=== PATIENT | male | born 1995 | race Two or more races ===

== ENCOUNTER 2020-12-08 12:48 | Inpatient (IN) | payer BC, OTHER ==
[2020-12-08] MEDS ORDERED: Morphine 4 MG/ML Syringe IVPUSH ONE (13:39)
[2020-12-08] MEDS ORDERED: Sodium Chloride 0.9% 1,000 ML IV ONE ×2 (13:39→15:01)
[2020-12-08] MEDS ORDERED: Ondansetron 4 MG/2 ML SDV IVPUSH ONE (13:39)
--- NOTE | 2020-12-08 13:42 | EDM.PDOC ---
ED HPI GENERAL MEDICAL PROBLEM - General Chief Complaint: Genitourinary Problem Stated Complaint: PAIN IN LEFT SCROTOM Time Seen by Provider: 12/08/20 13:03 Source of Information: Reports: Patient History Limitations: Reports: No Limitations - History of Present Illness INITIAL COMMENTS - FREE TEXT/NARRATIVE: HISTORY AND PHYSICAL: History of present illness: Patient is a 25-year-old male who presents to the emergency room with complaints of left testicular pain. Father who is at bedside states that the patient has been having abdominal pain, change in bowel movements, weight loss and "deteriorating" over the past 2 months. He was seen at [facility] in [place] and had been diagnosed with ulcerative colitis. He had full work-up including CT scan, colonoscopy and lab work. Patient reports he took Mesalamine rectally x 1 month and now takes it orally for treatment course. Patient reports that last evening he was laying in bed and he turned onto his side and had a sharp pain into his left testicle. Patient denies any fever, chills, headache, change in vision, syncope or near syncope. Denies any chest pain, back pain, shortness of breath or cough. Denies any abdominal pain, nausea, vomiting, diarrhea, constipation or dysuria. Has not noted any blood in urine or stool. States every time he voids, he usually has small amount of mucousy stools. He has had bloody stools in the past, but "much better now...just have hemorrhoids that are bleeding alittle". Patient has been eating and drinking appropriately. Review of systems: As per history of present illness and below otherwise all systems reviewed and negative. Past medical history: As per history of present illness and as reviewed below otherwise noncontributory. Surgical history: As per history of present illness and as reviewed below otherwise noncontributory. Social history: See social history for further information Family history: As per history of present illness and as reviewed below otherwise noncontributory. Physical exam: General: Well developed and well nourished 25-year-old male. Alert and orientated x 3. Nontoxic in appearance and in no acute distress. Vital signs are stable and have been reviewed by me. Nursing notes were reviewed. HEENT: Atraumatic, normocephalic, pupils equal and reactive bilaterally, negative for conjunctival pallor or scleral icterus, mucous membranes moist, trachea midline. No drooling or trismus noted. No meningeal signs. No hot potato voice noted. Lungs: Clear to auscultation bilaterally. No wheezes, rales, or rhonchi. Chest nontender. Normal work of breathing, no accessory muscles used. Heart: S1S2, regular rate and rhythm without overt murmur, gallops, or rubs. No JVD. No peripheral edema Abdomen: Soft, nondistended, nontender. Normoactive bowel sounds. Negative for masses or costovertebral tenderness. Pelvis: Stable nontender. Genitourinary: This was done with consent and a sales support manager at bedside. Bilateral testes are descended. Left testy is tender to touch and mildly larger than right. No hernia appreciated. +cremasteric reflex . Rectal: This was done with consent and a sales support manager at the bedside. Patient does have active external hemorrhoids noted and pain with finger insertion. There is yellow/pink stool noted which is Hemoccult positive. Skin: Intact, warm, dry. No lesions or rashes noted. Hematologic: No petechiae or purpra. Mucosa appropriate color and normal nail bed color and refill. Extremities: Atraumatic, moves all extremities per self without difficulty or deficits, negative for cords or calf pain. Neurovascular unremarkable. Neuro: Awake, alert, oriented. Cranial nerves II through XII unremarkable. Cerebellum unremarkable. Motor and sensory unremarkable throughout. Exam nonfocal. Psychiatric: Mood and affect are appropriate. Normal thought process. Answering questions appropriately. Please note that the patient was seen and evaluated during the 2019 SARS-CoV-2 novel coronavirus pandemic period. Community viral transmission is ongoing at time of this encounter and the emergency department is operating under pandemic response procedures. Medical Decision Making: Patient is a 25-year-old male who presents to the emergency room with complaints of left testicular pain since this morning. Dad is concerned as he feels the patient has been deteriorating since being diagnosed with ulcerative colitis 2 months ago. Patient's vital signs show he has an elevated heart rate, he does appear pale. He is agreeable to lab work including a testicular ultrasound to rule out torsion. Physical exam reveals tenderness of the left testy. He does have active external hemorrhoids noted and pain with finger insertion. There is yellow/pink stool noted which is Hemoccult positive. My suspicion for active GI bleeding is low. His bottom does appear irritated. He states he did have quite a bit of blood in his stools last month but it is progressively getting better. He believes that the blood he sees now is just from the hemorrhoids. Patient does have a low hemoglobin. Patient states that his hemoglobin is chronically low and he takes iron supplements for this. When he was admitted to the hospital a month ago his hemoglobin had gotten down to 7.2 and had came up to 8 with IV fluids. He states he is never had to receive blood products for his low hemoglobin. When his blood was checked a few weeks ago his hemoglobin was 9.2. Patient's testicular ultrasound is negative. I have talked with the patient about today's findings, in addition to providing specific details for plan of care. We did discuss how we would like to proceed. Patient and father state when he was admitted last time for the low hemoglobin that he felt much better after receiving IV fluids and would like to trial this. Dr. Rivera was consulted and is agreeable to keeping the patient for further care and management. Patient will be admitted with telemetry. Diagnostics: CBC, CMP, crossmatch, UA, gonorrhea/chlamydia, Hemoccult, testicular ultrasound Therapeutics: IV fluid, Zofran, morphine Impression: Ulcerative colitis Anemia Definitive disposition and diagnosis as appropriate pending reevaluation and review of above. Left Scrotum Pain Score (Numeric/FACES): 2 - Related Data Allergies Allergy/AdvReac Type Severity Reaction Status Date / Time No Known Allergies Allergy Verified 12/08/20 13:45 Home Meds: Home Meds Ferrous Sulfate [Ferosul] 1 tab PO 07/26/20 [History] Past Medical History - Past Health History Medical/Surgical History: Denies Medical/Surgical History Gastrointestinal History: Reports: GI Bleed Other Gastrointestinal History: history of GI bleeds for several years Psychiatric History: Reports: Anxiety, Depression Other Psychiatric History: suicide in the past but nothing present - Infectious Disease History Infectious Disease History: Reports: None Social & Family History - Family History Family Medical History: No Pertinent Family History - Caffeine Use Caffeine Use: Reports: None ED ROS GENERAL - Review of Systems Review Of Systems: Comprehensive ROS is negative, except as noted in HPI. ED EXAM, RENAL/ - Physical Exam Exam: See Below (See dictation) Course - Vital Signs Last Recorded V/S: Last Vital Signs Temp 99.7 F 12/08/20 13:45 Pulse 101 H 12/08/20 16:06 Resp 18 12/08/20 16:06 BP 115/63 12/08/20 16:06 Pulse Ox 97 12/08/20 16:06 Orthostatic Blood Pressure [ 109/68 Standing] Orthostatic Blood Pressure [ 118/77 Sitting] Orthostatic Blood Pressure [ 122/75 Supine] - Orders/Labs/Meds Orders: Active Orders 24 hr Category Date Time Status Admission Status [Patient Status] [ADT] Stat ADT 12/08/20 15:02 Active Antiembolic Devices [RC] PER UNIT ROUTINE Care 12/08/20 15:15 Active Hemoccult [Fecal Occult Blood Collection] [RC] Care 12/08/20 14:09 Active ASDIRECTED Orthostatic Vital Signs [RC] ASDIRECTED Care 12/08/20 14:04 Active Oxygen Therapy [RC] PRN Care 12/08/20 15:14 Active Up ad Desiree [RC] ASDIRECTED Care 12/08/20 15:14 Active VTE/DVT Education [RC] PER UNIT ROUTINE Care 12/08/20 15:14 Active Vital Signs [RC] Q4H Care 12/08/20 15:14 Active Clear Liquid Diet [DIET] Diet 12/08/20 Breakfast Active Abdomen Pelvis w Cont [CT] Stat Exams 12/08/20 15:13 Taken Testicular US [Scrotum and Contents] [US] Stat Exams 12/08/20 13:53 Taken CBC WITH AUTO DIFF [HEME] AM Lab 12/09/20 05:11 Ordered CBC WITH AUTO DIFF [HEME] Stat Lab 12/08/20 21:00 Ordered CHLAMYDIA AND GONORRHEA BY TMA Stat Lab 12/08/20 14:37 Received COMPREHENSIVE METABOLIC PN,CMP [CHEM] AM Lab 12/09/20 05:11 Ordered CORONAVIRUS COVID-19 JADYN [MOLEC] Stat Lab 12/08/20 15:05 Received MAGNESIUM [CHEM] AM Lab 12/09/20 05:11 Ordered PHOSPHORUS [CHEM] AM Lab 12/09/20 05:11 Ordered Morphine Med 12/08/20 15:14 Active 2 mg IVPUSH Q3H PRN Ondansetron [Zofran] Med 12/08/20 15:14 Active 4 mg IVPUSH Q4H PRN Sodium Chloride 0.9% [Normal Saline] 1,000 ml Med 12/08/20 15:01 Active IV STAT methylPREDNISolone Sod Succ [Solu-MEDROL] Med 12/08/20 15:30 Active 40 mg IVPUSH DAILY Sequential Compression Device [OM.PC] Per Unit Routine Oth 12/08/20 15:14 Ordered Resuscitation Status Routine Resus Stat 12/08/20 15:14 Ordered Medication Orders Sodium Chloride (Normal Saline) 1,000 mls @ 125 mls/hr IV STAT ONE Stop: 12/08/20 23:00 Last Admin: 12/08/20 15:17 Dose: 125 mls/hr Documented by: ANNA Methylprednisolone Sodium Succinate (Methylprednisolone Sodium Succinate 40 Mg/1 Ml Sdv) 40 mg IVPUSH DAILY MCKAY Last Admin: 12/08/20 15:59 Dose: 40 mg Documented by: ANNA Morphine Sulfate (Morphine 10 Mg/Ml Syringe) 2 mg IVPUSH Q3H PRN PRN Reason: Pain (severe 7-10) Stop: 12/09/20 15:15 Ondansetron HCl (Ondansetron 4 Mg/2 Ml Sdv) 4 mg IVPUSH Q4H PRN PRN Reason: Nausea Labs: Laboratory Tests 12/08/20 12/08/20 12/08/20 Range/Units 13:33 13:42 13:42 WBC 8.20 (4.0-11.0) K/uL RBC 4.27 L (4.50-5.90) M/uL Hgb 7.9 L (13.0-17.0) g/dL Hct 25.6 L (38.0-50.0) % MCV 60.0 L (80.0-98.0) fL MCH 18.5 L (27.0-32.0) pg MCHC 30.9 L (31.0-37.0) g/dL RDW Std Deviation 36.9 (28.0-62.0) fl RDW Coeff of Malcolm 17 H (11.0-15.0) % Plt Count 786 H (150-400) K/uL MPV 8.20 (7.40-12.00) fL Add Manual Diff YES Neutrophils % (Manual) 61 (48.0-80.0) % Band Neutrophils % 3 % Lymphocytes % (Manual) 23 (16.0-40.0) % Monocytes % (Manual) 10 (0.0-15.0) % Eosinophils % (Manual) 1 (0.0-7.0) % Basophils % (Manual) 1 (0.0-1.5) % Metamyelocytes % 1 % Nucleated RBC % 0.0 /100WBC Absolute Seg Neuts 5.0 (1.4-5.7) Band Neutrophils # 0.2 Lymphocytes # (Manual) 1.9 (0.6-2.4) Monocytes # (Manual) 0.8 (0.0-0.8) Eosinophils # (Manual) 0.1 (0.0-0.7) Basophils # (Manual) 0.1 (0.0-0.1) Absolute Metamyelocyte 0.1 Nucleated RBCs # 0 K/uL Polychromasia 1+ SLIGHT Hypochromasia MODERATE Microcytosis 2+ MODERATE Sodium 131 L (136-148) mmol/L Potassium 3.7 (3.5-5.1) mmol/L Chloride 94 L (98-107) mmol/L Carbon Dioxide 27.9 (21.0-32.0) mmol/L BUN 5 L (7.0-18.0) mg/dL Creatinine 1.2 (0.8-1.3) mg/dL Est Cr Clr Drug Dosing 85.99 mL/min Estimated GFR (MDRD) > 60.0 ml/min Glucose 152 H (74-106) mg/dL Lactic Acid (0.4-2.0) mmol/L Calcium 8.4 L (8.5-10.1) mg/dL Iron (50-175) ug/dL TIBC (250-450) ug/dL % Saturation (20-55) % Transferrin Ferritin (26-388) ng/mL Total Bilirubin 0.2 (0.2-1.0) mg/dL AST 19 (15-37) IU/L ALT 20 (14-63) IU/L Alkaline Phosphatase 101 (46-116) U/L Total Protein 7.1 (6.4-8.2) g/dL Albumin 2.0 L (3.4-5.0) g/dL Globulin 5.1 H (2.6-4.0) g/dL Albumin/Globulin Ratio 0.4 L (0.9-1.6) Urine Color YELLOW Urine Appearance CLEAR Urine pH 7.0 (5.0-8.0) Ur Specific [place] <= 1.005 (1.001-1.035) Urine Protein NEGATIVE (NEGATIVE) mg/dL Urine Glucose (UA) NEGATIVE (NEGATIVE) mg/dL Urine Ketones NEGATIVE (NEGATIVE) mg/dL Urine Occult Blood NEGATIVE (NEGATIVE) Urine Nitrite NEGATIVE (NEGATIVE) Urine Bilirubin NEGATIVE (NEGATIVE) Urine Urobilinogen 0.2 (<2.0) EU/dL Ur Leukocyte Esterase NEGATIVE (NEGATIVE) Blood Type Antibody Screen 12/08/20 12/08/20 12/08/20 Range/Units 13:42 13:42 14:43 WBC (4.0-11.0) K/uL RBC (4.50-5.90) M/uL Hgb (13.0-17.0) g/dL Hct (38.0-50.0) % MCV (80.0-98.0) fL MCH (27.0-32.0) pg MCHC (31.0-37.0) g/dL RDW Std Deviation (28.0-62.0) fl RDW Coeff of Malcolm (11.0-15.0) % Plt Count (150-400) K/uL MPV (7.40-12.00) fL Add Manual Diff Neutrophils % (Manual) (48.0-80.0) % Band Neutrophils % % Lymphocytes % (Manual) (16.0-40.0) % Monocytes % (Manual) (0.0-15.0) % Eosinophils % (Manual) (0.0-7.0) % Basophils % (Manual) (0.0-1.5) % Metamyelocytes % % Nucleated RBC % /100WBC Absolute Seg Neuts (1.4-5.7) Band Neutrophils # Lymphocytes # (Manual) (0.6-2.4) Monocytes # (Manual) (0.0-0.8) Eosinophils # (Manual) (0.0-0.7) Basophils # (Manual) (0.0-0.1) Absolute Metamyelocyte Nucleated RBCs # K/uL Polychromasia Hypochromasia Microcytosis Sodium (136-148) mmol/L Potassium (3.5-5.1) mmol/L Chloride (98-107) mmol/L Carbon Dioxide (21.0-32.0) mmol/L BUN (7.0-18.0) mg/dL Creatinine (0.8-1.3) mg/dL Est Cr Clr Drug Dosing mL/min Estimated GFR (MDRD) ml/min Glucose (74-106) mg/dL Lactic Acid 2.0 (0.4-2.0) mmol/L Calcium (8.5-10.1) mg/dL Iron 15 L (50-175) ug/dL TIBC 172 L (250-450) ug/dL % Saturation 8.72 L (20-55) % Transferrin 120.4 Ferritin 65 (26-388) ng/mL Total Bilirubin (0.2-1.0) mg/dL AST (15-37) IU/L ALT (14-63) IU/L Alkaline Phosphatase (46-116) U/L Total Protein (6.4-8.2) g/dL Albumin (3.4-5.0) g/dL Globulin (2.6-4.0) g/dL Albumin/Globulin Ratio (0.9-1.6) Urine Color Urine Appearance Urine pH (5.0-8.0) Ur Specific [place] (1.001-1.035) Urine Protein (NEGATIVE) mg/dL Urine Glucose (UA) (NEGATIVE) mg/dL Urine Ketones (NEGATIVE) mg/dL Urine Occult Blood (NEGATIVE) Urine Nitrite (NEGATIVE) Urine Bilirubin (NEGATIVE) Urine Urobilinogen (<2.0) EU/dL Ur Leukocyte Esterase (NEGATIVE) Blood Type O POSITIVE Antibody Screen NEGATIVE Meds: Medications Generic Name Dose Route Start Last Admin Trade Name Freq PRN Reason Stop Dose Admin Sodium Chloride 1,000 mls @ 125 mls/hr 12/08/20 15:01 12/08/20 15:17 Normal Saline IV 12/08/20 23:00 125 mls/hr STAT ONE Administration Methylprednisolone Sodium Succinate 40 mg 12/08/20 15:30 12/08/20 15:59 Methylprednisolone Sodium Succinate 40 Mg/1 Ml Sdv IVPUSH 40 mg DAILY MCKAY Administration Morphine Sulfate 2 mg 12/08/20 15:14 Morphine 10 Mg/Ml Syringe IVPUSH 12/09/20 15:15 Q3H PRN Pain (severe 7-10) Ondansetron HCl 4 mg 12/08/20 15:14 Ondansetron 4 Mg/2 Ml Sdv IVPUSH Q4H PRN Nausea Discontinued Medications Generic Name Dose Route Start Last Admin Trade Name Adonay PRN Reason Stop Dose Admin Sodium Chloride 1,000 mls @ 999 mls/hr 12/08/20 13:39 12/08/20 13:48 Normal Saline IV 12/08/20 14:39 999 mls/hr STAT ONE Administration Iopamidol 100 ml 12/08/20 15:41 12/08/20 15:42 Iopamidol 755 Mg/Ml 500 Ml Multipack Bottle IVPUSH 12/08/20 15:42 100 ml ONETIME STA Administration Morphine Sulfate 4 mg 12/08/20 13:39 12/08/20 13:48 Morphine 4 Mg/Ml Syringe IVPUSH 12/08/20 13:40 4 mg ONETIME ONE Administration Ondansetron HCl 4 mg 12/08/20 13:39 12/08/20 13:48 Ondansetron 4 Mg/2 Ml Sdv IVPUSH 12/08/20 13:40 4 mg ONETIME ONE Administration Departure - Departure Time of Disposition: 16:22 Disposition: Admitted As Inpatient 68 Clinical Impression: Ulcerative colitis, Anemia, Testicular pain, left - Discharge Information Referrals: PCP,None [Primary Care Provider] - Forms: ED Department Discharge Sepsis Event Note (ED) - Focused Exam Vital Signs: Vital Signs Temp Pulse Resp BP Pulse Ox 12/08/20 16:06 101 H 18 115/63 97 12/08/20 15:23 89 20 110/73 98 12/08/20 14:40 88 18 125/63 97 12/08/20 13:54 96 18 122/80 98 12/08/20 13:45 99.7 F 120 H 18 129/88 100 - My Orders Last 24 Hours: My Active Orders 12/08/20 13:53 Testicular US [Scrotum and Contents] [US] Stat 12/08/20 14:04 Orthostatic Vital Signs [RC] ASDIRECTED 12/08/20 14:09 Hemoccult [Fecal Occult Blood Collection] [RC] ASDIRECTED 12/08/20 14:37 CHLAMYDIA AND GONORRHEA BY TMA Stat 12/08/20 15:01 Sodium Chloride 0.9% [Normal Saline] 1,000 ml IV STAT 12/08/20 15:02 Admission Status [Patient Status] [ADT] Stat 12/08/20 15:05 CORONAVIRUS COVID-19 JADYN [MOLEC] Stat - Assessment/Plan Last 24 Hours: My Active Orders 12/08/20 13:53 Testicular US [Scrotum and Contents] [US] Stat 12/08/20 14:04 Orthostatic Vital Signs [RC] ASDIRECTED 12/08/20 14:09 Hemoccult [Fecal Occult Blood Collection] [RC] ASDIRECTED 12/08/20 14:37 CHLAMYDIA AND GONORRHEA BY TMA Stat 12/08/20 15:01 Sodium Chloride 0.9% [Normal Saline] 1,000 ml IV STAT 12/08/20 15:02 Admission Status [Patient Status] [ADT] Stat 12/08/20 15:05 CORONAVIRUS COVID-19 JADYN [MOLEC] Stat
[2020-12-08 14:23] LABS: BLOOD UREA NITROGEN,BUN 5 mg/dL (7.0-18.0); CARBON DIOXIDE,CO2 27.9 mmol/L (21.0-32.0); CHLORIDE,CL 94 mmol/L (98-107); GLUCOSE RANDOM 152 mg/dL (74-106); POTASSIUM,K 3.7 mmol/L (3.5-5.1); SODIUM,NA 131 mmol/L (136-148)
--- NOTE | 2020-12-08 14:56 | US ---
INDICATION: Left scrotal pain. TECHNIQUE: Conventional two-dimensional grayscale ultrasound of the scrotum as well color-flow and pulsed Doppler of the testes. COMPARISON: None. FINDINGS: Both testes are normal in size, shape and echogenicity. The right testis measures 4.1 x 3.9 x 2.1 cm and the left 2.9 x 2.5 x 2.2 cm. Color flow Doppler demonstrates normal testicular and epididymal blood flow. No epididymal abnormality, abnormal fluid collection or varicocele is demonstrated. IMPRESSION: Normal scrotal ultrasound. Dictated by Yon Joseph MD @ 12/08/2020 2:55:24 PM (Electronically Signed)
[2020-12-08] MEDS ORDERED: Morphine 10 MG/ML Syringe IVPUSH PRN (15:14)
[2020-12-08] MEDS ORDERED: Ondansetron 4 MG/2 ML SDV IVPUSH PRN (15:14)
--- NOTE | 2020-12-08 15:27 | PCM.HP.2 ---
H&P History of Present Illness - General Date of Service: 12/08/20 Admit Problem/Dx: Admission Diagnosis/Problem Admission Diagnosis/Problem Ulcerative colitis - History of Present Illness Initial Comments - Free Text/Narative: 25 yo male who was diagnosed with ulcerative colitis last July and iron deficiency anemia. Patient reports he has been on two medication a pill and an enema. He presents to the ED with concerns of left testicular pain. He also admits to eight loose bowel movements a day. He has inflamed hemorrhoids. He reports some blood in the stool but not much. In the ED he had a normal scrotal ultrasound. His hgb was noted to be 7.9. His stool was heme positive and scant yellow/pink in color. Left Scrotum Pain Score (Numeric/FACES): 2 - Related Data Allergies/Adverse Reactions: Allergies Allergy/AdvReac Type Severity Reaction Status Date / Time No Known Allergies Allergy Verified 12/08/20 13:45 Home Medications: Home Meds Ferrous Sulfate [Ferosul] 1 tab PO 07/26/20 [History] Past Medical History - Past Health History Medical/Surgical History: Denies Medical/Surgical History Gastrointestinal History: Reports: GI Bleed Other Gastrointestinal History: history of GI bleeds for several years Psychiatric History: Reports: Anxiety, Depression Other Psychiatric History: suicide in the past but nothing present - Infectious Disease History Infectious Disease History: Reports: None Social & Family History - Family History Family Medical History: No Pertinent Family History - Tobacco Use Tobacco Use Status *Q: Never Tobacco User - Caffeine Use Caffeine Use: Reports: None - Recreational Drug Use Recreational Drug Use: No H&P Review of Systems - Review of Systems: Review Of Systems: Comprehensive ROS is negative, except as noted in HPI. Exam - Exam Exam: See Below - Vital Signs Vital Signs: Last Vital Signs Temp 37.6 C 12/08/20 13:45 Pulse 88 12/08/20 14:40 Resp 18 12/08/20 14:40 BP 125/63 12/08/20 14:40 Pulse Ox 97 12/08/20 14:40 Orthostatic Blood Pressure [ 109/68 Standing] Orthostatic Blood Pressure [ 118/77 Sitting] Orthostatic Blood Pressure [ 122/75 Supine] Weight: 63.503 kg - Exam General: Alert, Oriented HEENT: Mucosa Moist & [place] Neck: Supple Lungs: Clear to Auscultation Cardiovascular: Regular Rate, Regular Rhythm GI/Abdominal Exam: Normal Bowel Sounds, Soft, Non-Tender (Male) Exam: No: Penile Lesions, Rash, Scrotal Swelling, Scrotum Tenderness (L), Scrotum Tenderness (R), Suprapubic Fullness, Testicular Mass, Testicular Tenderness (L), Testicular Tenderness (R), Urethral Discharge Rectal (Males) Exam: Hemorrhoids Extremities: Non-Tender, No Pedal Edema Skin: Warm, Dry, Intact Neurological: Cranial Nerves Intact. No: Focal Deficit - Patient Data Lab Results Last 24 hrs: Laboratory Results - last 24 hr 12/08/20 12/08/20 12/08/20 Range/Units 13:33 13:42 13:42 WBC 8.20 (4.0-11.0) K/uL RBC 4.27 L (4.50-5.90) M/uL Hgb 7.9 L (13.0-17.0) g/dL Hct 25.6 L (38.0-50.0) % MCV 60.0 L (80.0-98.0) fL MCH 18.5 L (27.0-32.0) pg MCHC 30.9 L (31.0-37.0) g/dL RDW Std Deviation 36.9 (28.0-62.0) fl RDW Coeff of Malcolm 17 H (11.0-15.0) % Plt Count 786 H (150-400) K/uL MPV 8.20 (7.40-12.00) fL Add Manual Diff YES Neutrophils % (Manual) 61 (48.0-80.0) % Band Neutrophils % 3 % Lymphocytes % (Manual) 23 (16.0-40.0) % Monocytes % (Manual) 10 (0.0-15.0) % Eosinophils % (Manual) 1 (0.0-7.0) % Basophils % (Manual) 1 (0.0-1.5) % Metamyelocytes % 1 % Nucleated RBC % 0.0 /100WBC Absolute Seg Neuts 5.0 (1.4-5.7) Band Neutrophils # 0.2 Lymphocytes # (Manual) 1.9 (0.6-2.4) Monocytes # (Manual) 0.8 (0.0-0.8) Eosinophils # (Manual) 0.1 (0.0-0.7) Basophils # (Manual) 0.1 (0.0-0.1) Absolute Metamyelocyte 0.1 Nucleated RBCs # 0 K/uL Polychromasia 1+ SLIGHT Hypochromasia MODERATE Microcytosis 2+ MODERATE Sodium 131 L (136-148) mmol/L Potassium 3.7 (3.5-5.1) mmol/L Chloride 94 L (98-107) mmol/L Carbon Dioxide 27.9 (21.0-32.0) mmol/L BUN 5 L (7.0-18.0) mg/dL Creatinine 1.2 (0.8-1.3) mg/dL Est Cr Clr Drug Dosing 85.99 mL/min Estimated GFR (MDRD) > 60.0 ml/min Glucose 152 H (74-106) mg/dL Lactic Acid (0.4-2.0) mmol/L Calcium 8.4 L (8.5-10.1) mg/dL Total Bilirubin 0.2 (0.2-1.0) mg/dL AST 19 (15-37) IU/L ALT 20 (14-63) IU/L Alkaline Phosphatase 101 (46-116) U/L Total Protein 7.1 (6.4-8.2) g/dL Albumin 2.0 L (3.4-5.0) g/dL Globulin 5.1 H (2.6-4.0) g/dL Albumin/Globulin Ratio 0.4 L (0.9-1.6) Urine Color YELLOW Urine Appearance CLEAR Urine pH 7.0 (5.0-8.0) Ur Specific [place] <= 1.005 (1.001-1.035) Urine Protein NEGATIVE (NEGATIVE) mg/dL Urine Glucose (UA) NEGATIVE (NEGATIVE) mg/dL Urine Ketones NEGATIVE (NEGATIVE) mg/dL Urine Occult Blood NEGATIVE (NEGATIVE) Urine Nitrite NEGATIVE (NEGATIVE) Urine Bilirubin NEGATIVE (NEGATIVE) Urine Urobilinogen 0.2 (<2.0) EU/dL Ur Leukocyte Esterase NEGATIVE (NEGATIVE) 12/08/20 Range/Units 13:42 WBC (4.0-11.0) K/uL RBC (4.50-5.90) M/uL Hgb (13.0-17.0) g/dL Hct (38.0-50.0) % MCV (80.0-98.0) fL MCH (27.0-32.0) pg MCHC (31.0-37.0) g/dL RDW Std Deviation (28.0-62.0) fl RDW Coeff of Malcolm (11.0-15.0) % Plt Count (150-400) K/uL MPV (7.40-12.00) fL Add Manual Diff Neutrophils % (Manual) (48.0-80.0) % Band Neutrophils % % Lymphocytes % (Manual) (16.0-40.0) % Monocytes % (Manual) (0.0-15.0) % Eosinophils % (Manual) (0.0-7.0) % Basophils % (Manual) (0.0-1.5) % Metamyelocytes % % Nucleated RBC % /100WBC Absolute Seg Neuts (1.4-5.7) Band Neutrophils # Lymphocytes # (Manual) (0.6-2.4) Monocytes # (Manual) (0.0-0.8) Eosinophils # (Manual) (0.0-0.7) Basophils # (Manual) (0.0-0.1) Absolute Metamyelocyte Nucleated RBCs # K/uL Polychromasia Hypochromasia Microcytosis Sodium (136-148) mmol/L Potassium (3.5-5.1) mmol/L Chloride (98-107) mmol/L Carbon Dioxide (21.0-32.0) mmol/L BUN (7.0-18.0) mg/dL Creatinine (0.8-1.3) mg/dL Est Cr Clr Drug Dosing mL/min Estimated GFR (MDRD) ml/min Glucose (74-106) mg/dL Lactic Acid 2.0 (0.4-2.0) mmol/L Calcium (8.5-10.1) mg/dL Total Bilirubin (0.2-1.0) mg/dL AST (15-37) IU/L ALT (14-63) IU/L Alkaline Phosphatase (46-116) U/L Total Protein (6.4-8.2) g/dL Albumin (3.4-5.0) g/dL Globulin (2.6-4.0) g/dL Albumin/Globulin Ratio (0.9-1.6) Urine Color Urine Appearance Urine pH (5.0-8.0) Ur Specific [place] (1.001-1.035) Urine Protein (NEGATIVE) mg/dL Urine Glucose (UA) (NEGATIVE) mg/dL Urine Ketones (NEGATIVE) mg/dL Urine Occult Blood (NEGATIVE) Urine Nitrite (NEGATIVE) Urine Bilirubin (NEGATIVE) Urine Urobilinogen (<2.0) EU/dL Ur Leukocyte Esterase (NEGATIVE) Result Diagrams: 12/08/20 13:42 12/08/20 13:42 Sepsis Event Note - Evaluation Sepsis Screening Result: No Definite Risk - Focused Exam Vital Signs: Vital Signs Temp Pulse Resp BP Pulse Ox 12/08/20 14:40 88 18 125/63 97 12/08/20 13:54 96 18 122/80 98 12/08/20 13:45 37.6 C 120 H 18 129/88 100 Problem List Initiated/Reviewed/Updated: Yes Orders Last 24hrs: Active Orders 24 hr Category Date Time Status Admission Status [Patient Status] [ADT] Stat ADT 12/08/20 15:02 Active Antiembolic Devices [RC] PER UNIT ROUTINE Care 12/08/20 15:15 Ordered Hemoccult [Fecal Occult Blood Collection] [RC] Care 12/08/20 14:09 Active ASDIRECTED Orthostatic Vital Signs [RC] ASDIRECTED Care 12/08/20 14:04 Active Oxygen Therapy [RC] PRN Care 12/08/20 15:14 Ordered Up ad Desiree [RC] ASDIRECTED Care 12/08/20 15:14 Ordered VTE/DVT Education [RC] PER UNIT ROUTINE Care 12/08/20 15:14 Ordered Vital Signs [RC] Q4H Care 12/08/20 15:14 Ordered Clear Liquid Diet [DIET] Diet 12/08/20 Breakfast Ordered Abdomen Pelvis w Cont [CT] Stat Exams 12/08/20 15:13 Ordered Testicular US [Scrotum and Contents] [US] Stat Exams 12/08/20 13:53 Taken CBC WITH AUTO DIFF [HEME] AM Lab 12/09/20 05:11 Ordered CBC WITH AUTO DIFF [HEME] Stat Lab 12/08/20 21:00 Ordered CHLAMYDIA AND GONORRHEA BY TMA Stat Lab 12/08/20 14:37 Received COMPREHENSIVE METABOLIC PN,CMP [CHEM] AM Lab 12/09/20 05:11 Ordered CORONAVIRUS COVID-19 JADYN [MOLEC] Stat Lab 12/08/20 15:03 Ordered FERRITIN [CHEM] Stat Lab 12/08/20 15:18 Ordered IRON/TIBC [CHEM] Stat Lab 12/08/20 15:18 Ordered MAGNESIUM [CHEM] AM Lab 12/09/20 05:11 Ordered PATIENT RETYPE [BBK] Routine Lab 12/08/20 13:42 Received PHOSPHORUS [CHEM] AM Lab 12/09/20 05:11 Ordered TRANSFERRIN [CHEM] Stat Lab 12/08/20 15:18 Ordered TYPE AND SCREEN [BBK] Stat Lab 12/08/20 14:43 Results Morphine Med 12/08/20 15:14 Ordered 2 mg IVPUSH Q3H PRN Ondansetron [Zofran] Med 12/08/20 15:14 Ordered 4 mg IVPUSH Q4H PRN Sodium Chloride 0.9% [Normal Saline] 1,000 ml Med 12/08/20 15:01 Active IV STAT methylPREDNISolone Sod Succ [Solu-MEDROL] Med 12/08/20 15:30 Ordered 40 mg IVPUSH DAILY Sequential Compression Device [OM.PC] Per Unit Routine Oth 12/08/20 15:14 Ordered Resuscitation Status Routine Resus Stat 12/08/20 15:14 Ordered Medication Orders Sodium Chloride (Normal Saline) 1,000 mls @ 125 mls/hr IV STAT ONE Stop: 12/08/20 23:00 Last Admin: 12/08/20 15:17 Dose: 125 mls/hr Documented by: ANNA Methylprednisolone Sodium Succinate (Methylprednisolone Sodium Succinate 40 Mg/1 Ml Sdv) 40 mg IVPUSH DAILY MCKAY Morphine Sulfate (Morphine 10 Mg/Ml Syringe) 2 mg IVPUSH Q3H PRN PRN Reason: Pain (severe 7-10) Stop: 12/09/20 15:15 Ondansetron HCl (Ondansetron 4 Mg/2 Ml Sdv) 4 mg IVPUSH Q4H PRN PRN Reason: Nausea Assessment/Plan Comment:: 25 yo male admitted for ulcerative colitis flare. We will hydrate with IV fluids and treated with solumedrol. CT scan of abdomen/pelvis ordered. Patient likely anemic from chronic bleeding, will trend Hgb and consider transfusion if Hgb drops or if he becomes symptomatic.
[2020-12-08] MEDS ORDERED: methylPREDNISolone Sodium Succinate 40 MG/1 ML SDV IVPUSH SCH (15:30)
[2020-12-08] MEDS ORDERED: Iopamidol 755 MG/ML 500 ML Multipack Bottle IVPUSH STA (15:41)
--- NOTE | 2020-12-08 16:29 | CT ---
HISTORY: Pelvic pain. Ulcerative colitis. Anemia. TECHNIQUE: Intravenous contrast enhanced CT of the abdomen and pelvis. 100 mL of Isovue-370 intravenous contrast administered. COMPARISON: 07/26/2020. FINDINGS: There is no focal liver parenchymal abnormality. No biliary ductal dilatation. Gallbladder does not appear excessively distended. Spleen and adrenal glands are normal. No focal pancreatic abnormality. Symmetric nephrograms. No renal mass or hydronephrosis. No obstructive calculus. Urinary bladder nondistended. - There is wall thickening involving much of the colon including the transverse, descending, sigmoid and rectal portions of the colon. This involves a similar distribution as compared to the prior CT. The ascending colonic wall is likely normal thickness. The appendix is normal. Prominent lymph nodes are noted throughout the colonic mesenteric. These findings likely relate to the patient`s reported ulcerative colitis. There is a small amount of pelvic free fluid. No localized fluid collection or free intraperitoneal air. - No abdominal aortic aneurysm. - Lung bases are clear. No pleural effusion. - No acute bony abnormality. IMPRESSION: 1. Extensive colitis which likely relates to this patient`s history of ulcerative colitis. Overall similar extent of colitis as compared to the prior CT. 2. Prominent mesenteric lymph nodes, especially within the colonic mesentery, are likely reactive. 3. Small amount of pelvic free fluid. No localized fluid collection or free air. Please note that all CT scans at this facility use dose modulation, iterative reconstruction, and/or weight-based dosing when appropriate to reduce radiation dose to as low as reasonably achievable. Dictated by Logan Cifuentes MD @ 12/08/2020 4:28:03 PM (Electronically Signed)
[2020-12-08] MEDS ORDERED: Morphine 2 MG/ML SYRINGE IVPUSH PRN (17:30)
[2020-12-08] MEDS: methylPREDNISolone Sodium Succinate 40 MG/1 ML SDV IVPUSH SCH (22:40)
[2020-12-09] MEDS: Sodium Chloride 0.9% 1,000 ML IV SCH ×3 (06:12→21:15)
[2020-12-09] MEDS: methylPREDNISolone Sodium Succinate 40 MG/1 ML SDV IVPUSH SCH ×3 (06:13→23:56)
[2020-12-09 07:29] LABS: BLOOD UREA NITROGEN,BUN 3 mg/dL (7.0-18.0); CARBON DIOXIDE,CO2 26.4 mmol/L (21.0-32.0); CHLORIDE,CL 100 mmol/L (98-107); GLUCOSE RANDOM 163 mg/dL (74-106); POTASSIUM,K 4.7 mmol/L (3.5-5.1); SODIUM,NA 135 mmol/L (136-148)
--- NOTE | 2020-12-09 08:24 | US ---
EXAM DATE: 12/08/20 PATIENT'S AGE: 25 Patient: TRAMAINE COLE Facility: [facility] . Site : [id number] Study: US-Testicle -12/08/2020 2:28:22 PM Ordering Physician: ED Provider Temporary Final Report: INDICATION: Left scrotal pain. TECHNIQUE: Conventional two-dimensional grayscale ultrasound of the scrotum as well color- flow and pulsed Doppler of the testes. COMPARISON: None. FINDINGS: Both testes are normal in size, shape and echogenicity. The right testis measures 4.1 x 3.9 x 2.1 cm and the left 2.9 x 2.5 x 2.2 cm. Color flow Doppler demonstrates normal testicular and epididymal blood flow. No epididymal abnormality, abnormal fluid collection or varicocele is demonstrated. IMPRESSION: Normal scrotal ultrasound. Dictated by Yon Joseph MD @ 12/08/2020 2:55:24 PM Signed by: Yon Joseph MD @12/08/2020 2:55:24 PM (Electronic Signature) Report Signed by Proxy. HORACIO
[2020-12-09] MEDS ORDERED: Ibuprofen 600 MG Tab PO ONE (08:40)
[2020-12-09] MEDS ORDERED: Aspirin 325 MG Tab PO ONE (08:42)
--- NOTE | 2020-12-09 16:17 | PCM.PN ---
<Christiano Eldridge - Last Filed: 12/09/20 16:21> - General Info Date of Service: 12/09/20 Subjective Update: The patient is a 25-year-old male with a significant past medical history of ulcerative colitis who was admitted due to a flare up of this condition, and was also found to have anemia as well as acute pericarditis. Upon interview today the patient admits to worsening diarrhea with 4 episodes yesterday and 3 episodes today since 5 AM this morning after being on a clear liquid diet. The patient suffers from hemorrhoids and admits there is bright red blood in his stool and upon wiping which is different from the blood that he sees in his stool upon flare up of his UC. Upon interview he denies chest pain, shortness of breath, chest pain, and palpitations. - Review of Systems General: Denies: Fever, Weakness, Chills Pulmonary: Denies: Shortness of Breath, Pleuritic Chest Pain, Cough Cardiovascular: Denies: Chest Pain, Palpitations Gastrointestinal: Reports: Diarrhea, Other (Bright red blood upon wiping after bowel movement attributed to history of hemorrhoids) Genitourinary: Denies: Dysuria - Patient Data Vitals - Most Recent: Last Vital Signs Temp 97.2 F 12/09/20 11:00 Pulse 83 12/09/20 11:00 Resp 16 12/09/20 11:00 BP 125/83 12/09/20 11:00 Pulse Ox 100 12/09/20 11:00 Orthostatic Blood Pressure [ 109/68 Standing] Orthostatic Blood Pressure [ 118/77 Sitting] Orthostatic Blood Pressure [ 122/75 Supine] Weight - Most Recent: 61.825 kg I&O - Last 24 Hours: Intake & Output 12/09/20 12/09/20 12/09/20 06:59 14:59 22:59 Intake Total 1504 Balance 1504 Lab Results Last 24 Hours: Laboratory Results - last 24 hr 12/08/20 12/08/20 12/08/20 Range/Units 14:43 15:05 20:57 WBC 8.40 (4.0-11.0) K/uL RBC 3.69 L (4.50-5.90) M/uL Hgb 6.7 L (13.0-17.0) g/dL Hct 22.1 L (38.0-50.0) % MCV 59.9 L (80.0-98.0) fL MCH 18.2 L (27.0-32.0) pg MCHC 30.3 L (31.0-37.0) g/dL RDW Std Deviation 37.2 (28.0-62.0) fl RDW Coeff of Malcolm 17 H (11.0-15.0) % Plt Count 650 H (150-400) K/uL MPV 8.20 (7.40-12.00) fL Neut % (Auto) (48.0-80.0) % Lymph % (Auto) (16.0-40.0) % [place] % (Auto) (0.0-15.0) % Eos % (Auto) (0.0-7.0) % Baso % (Auto) (0.0-1.5) % Neut # (Auto) (1.4-5.7) K/uL Lymph # (Auto) (0.6-2.4) K/uL [place] # (Auto) (0.0-0.8) K/uL Eos # (Auto) (0.0-0.7) K/uL Baso # (Auto) (0.0-0.1) K/uL Add Manual Diff YES Neutrophils % (Manual) 41 L (48.0-80.0) % Band Neutrophils % 45 % Lymphocytes % (Manual) 10 L (16.0-40.0) % Monocytes % (Manual) 4 (0.0-15.0) % Nucleated RBC % 0.0 /100WBC Absolute Seg Neuts 3.4 (1.4-5.7) Band Neutrophils # 3.8 Lymphocytes # (Manual) 0.8 (0.6-2.4) Monocytes # (Manual) 0.3 (0.0-0.8) Nucleated RBCs # 0 K/uL Sodium (136-148) mmol/L Potassium (3.5-5.1) mmol/L Chloride (98-107) mmol/L Carbon Dioxide (21.0-32.0) mmol/L BUN (7.0-18.0) mg/dL Creatinine (0.8-1.3) mg/dL Est Cr Clr Drug Dosing mL/min Estimated GFR (MDRD) ml/min Glucose (74-106) mg/dL Calcium (8.5-10.1) mg/dL Phosphorus (2.6-4.7) mg/dL Magnesium (1.8-2.4) mg/dL Total Bilirubin (0.2-1.0) mg/dL AST (15-37) IU/L ALT (14-63) IU/L Alkaline Phosphatase (46-116) U/L Troponin I (0.000-0.056) ng/mL Total Protein (6.4-8.2) g/dL Albumin (3.4-5.0) g/dL Globulin (2.6-4.0) g/dL Albumin/Globulin Ratio (0.9-1.6) SARS-CoV-2 RNA (JADYN) NEGATIVE (NEGATIVE) Blood Type O POSITIVE Antibody Screen NEGATIVE Crossmatch See Detail 12/09/20 12/09/20 12/09/20 Range/Units 06:54 06:54 08:53 WBC 9.87 (4.0-11.0) K/uL RBC 4.59 (4.50-5.90) M/uL Hgb 9.5 L (13.0-17.0) g/dL Hct 30.1 L (38.0-50.0) % MCV 65.6 L (80.0-98.0) fL MCH 20.7 L (27.0-32.0) pg MCHC 31.6 (31.0-37.0) g/dL RDW Std Deviation 50.2 (28.0-62.0) fl RDW Coeff of Malcolm 22 H (11.0-15.0) % Plt Count 562 H (150-400) K/uL MPV 8.20 (7.40-12.00) fL Neut % (Auto) 82.9 H (48.0-80.0) % Lymph % (Auto) 9.9 L (16.0-40.0) % [place] % (Auto) 7.2 (0.0-15.0) % Eos % (Auto) 0.0 (0.0-7.0) % Baso % (Auto) 0.0 (0.0-1.5) % Neut # (Auto) 8.2 H (1.4-5.7) K/uL Lymph # (Auto) 1.0 (0.6-2.4) K/uL [place] # (Auto) 0.7 (0.0-0.8) K/uL Eos # (Auto) 0.0 (0.0-0.7) K/uL Baso # (Auto) 0.0 (0.0-0.1) K/uL Add Manual Diff Neutrophils % (Manual) (48.0-80.0) % Band Neutrophils % % Lymphocytes % (Manual) (16.0-40.0) % Monocytes % (Manual) (0.0-15.0) % Nucleated RBC % 0.0 /100WBC Absolute Seg Neuts (1.4-5.7) Band Neutrophils # Lymphocytes # (Manual) (0.6-2.4) Monocytes # (Manual) (0.0-0.8) Nucleated RBCs # 0 K/uL Sodium 135 L (136-148) mmol/L Potassium 4.7 (3.5-5.1) mmol/L Chloride 100 (98-107) mmol/L Carbon Dioxide 26.4 (21.0-32.0) mmol/L BUN 3 L (7.0-18.0) mg/dL Creatinine 0.9 (0.8-1.3) mg/dL Est Cr Clr Drug Dosing 111.63 mL/min Estimated GFR (MDRD) > 60.0 ml/min Glucose 163 H (74-106) mg/dL Calcium 8.4 L (8.5-10.1) mg/dL Phosphorus 4.2 (2.6-4.7) mg/dL Magnesium 2.0 (1.8-2.4) mg/dL Total Bilirubin 0.3 (0.2-1.0) mg/dL AST 11 L (15-37) IU/L ALT 16 (14-63) IU/L Alkaline Phosphatase 82 (46-116) U/L Troponin I < 0.050 (0.000-0.056) ng/mL Total Protein 6.2 L (6.4-8.2) g/dL Albumin 1.7 L (3.4-5.0) g/dL Globulin 4.5 H (2.6-4.0) g/dL Albumin/Globulin Ratio 0.4 L (0.9-1.6) SARS-CoV-2 RNA (JADYN) (NEGATIVE) Blood Type Antibody Screen Crossmatch Brayden Results Last 24 Hours: Microbiology 12/08/20 22:50 C. difficile Antigen & Toxins A,B - Final Stool / Feces Med Orders - Current: Current Medications Sodium Chloride (Normal Saline) 1,000 mls @ 125 mls/hr IV ASDIRECTED [facility] Last Admin: 12/09/20 14:13 Dose: 125 mls/hr Documented by: Methylprednisolone Sodium Succinate (Methylprednisolone Sodium Succinate 40 Mg/1 Ml Sdv) 40 mg IVPUSH Q8H [facility] Last Admin: 12/09/20 14:51 Dose: 40 mg Documented by: Morphine Sulfate (Morphine 2 Mg/Ml Syringe) 2 mg IVPUSH Q3H PRN PRN Reason: Pain (severe 7-10) Ondansetron HCl (Ondansetron 4 Mg/2 Ml Sdv) 4 mg IVPUSH Q4H PRN PRN Reason: Nausea Discontinued Medications Sodium Chloride (Normal Saline) 1,000 mls @ 999 mls/hr IV STAT ONE Stop: 12/08/20 14:39 Last Admin: 12/08/20 13:48 Dose: 999 mls/hr Documented by: Sodium Chloride (Normal Saline) 1,000 mls @ 125 mls/hr IV STAT ONE Stop: 12/08/20 23:00 Last Admin: 12/08/20 15:17 Dose: 125 mls/hr Documented by: Ibuprofen (Ibuprofen 600 Mg Tab) 600 mg PO ONETIME ONE Stop: 12/09/20 08:41 Last Admin: 12/09/20 08:49 Dose: Not Given Documented by: Iopamidol (Iopamidol 755 Mg/Ml 500 Ml Multipack Bottle) 100 ml IVPUSH ONETIME STA Stop: 12/08/20 15:42 Last Admin: 12/08/20 15:42 Dose: 100 ml Documented by: Methylprednisolone Sodium Succinate (Methylprednisolone Sodium Succinate 40 Mg/1 Ml Sdv) 40 mg IVPUSH DAILY [facility] Last Admin: 12/08/20 15:59 Dose: 40 mg Documented by: Morphine Sulfate (Morphine 4 Mg/Ml Syringe) 4 mg IVPUSH ONETIME ONE Stop: 12/08/20 13:40 Last Admin: 12/08/20 13:48 Dose: 4 mg Documented by: Morphine Sulfate (Morphine 10 Mg/Ml Syringe) 2 mg IVPUSH Q3H PRN PRN Reason: Pain (severe 7-10) Stop: 12/09/20 15:15 Ondansetron HCl (Ondansetron 4 Mg/2 Ml Sdv) 4 mg IVPUSH ONETIME ONE Stop: 12/08/20 13:40 Last Admin: 12/08/20 13:48 Dose: 4 mg Documented by: - Exam General: Alert, Oriented, Cooperative Lungs: Clear to Auscultation Cardiovascular: Regular Rate, Regular Rhythm, No Murmurs GI/Abdominal Exam: Normal Bowel Sounds, Soft, Non-Tender, No Distention - Patient Data Lab Results Last 24 hrs: Laboratory Results - last 24 hr 12/08/20 12/08/20 12/08/20 Range/Units 14:43 15:05 20:57 WBC 8.40 (4.0-11.0) K/uL RBC 3.69 L (4.50-5.90) M/uL Hgb 6.7 L (13.0-17.0) g/dL Hct 22.1 L (38.0-50.0) % MCV 59.9 L (80.0-98.0) fL MCH 18.2 L (27.0-32.0) pg MCHC 30.3 L (31.0-37.0) g/dL RDW Std Deviation 37.2 (28.0-62.0) fl RDW Coeff of Malcolm 17 H (11.0-15.0) % Plt Count 650 H (150-400) K/uL MPV 8.20 (7.40-12.00) fL Neut % (Auto) (48.0-80.0) % Lymph % (Auto) (16.0-40.0) % [place] % (Auto) (0.0-15.0) % Eos % (Auto) (0.0-7.0) % Baso % (Auto) (0.0-1.5) % Neut # (Auto) (1.4-5.7) K/uL Lymph # (Auto) (0.6-2.4) K/uL [place] # (Auto) (0.0-0.8) K/uL Eos # (Auto) (0.0-0.7) K/uL Baso # (Auto) (0.0-0.1) K/uL Add Manual Diff YES Neutrophils % (Manual) 41 L (48.0-80.0) % Band Neutrophils % 45 % Lymphocytes % (Manual) 10 L (16.0-40.0) % Monocytes % (Manual) 4 (0.0-15.0) % Nucleated RBC % 0.0 /100WBC Absolute Seg Neuts 3.4 (1.4-5.7) Band Neutrophils # 3.8 Lymphocytes # (Manual) 0.8 (0.6-2.4) Monocytes # (Manual) 0.3 (0.0-0.8) Nucleated RBCs # 0 K/uL Sodium (136-148) mmol/L Potassium (3.5-5.1) mmol/L Chloride (98-107) mmol/L Carbon Dioxide (21.0-32.0) mmol/L BUN (7.0-18.0) mg/dL Creatinine (0.8-1.3) mg/dL Est Cr Clr Drug Dosing mL/min Estimated GFR (MDRD) ml/min Glucose (74-106) mg/dL Calcium (8.5-10.1) mg/dL Phosphorus (2.6-4.7) mg/dL Magnesium (1.8-2.4) mg/dL Total Bilirubin (0.2-1.0) mg/dL AST (15-37) IU/L ALT (14-63) IU/L Alkaline Phosphatase (46-116) U/L Troponin I (0.000-0.056) ng/mL Total Protein (6.4-8.2) g/dL Albumin (3.4-5.0) g/dL Globulin (2.6-4.0) g/dL Albumin/Globulin Ratio (0.9-1.6) SARS-CoV-2 RNA (JADYN) NEGATIVE (NEGATIVE) Blood Type O POSITIVE Antibody Screen NEGATIVE Crossmatch See Detail 12/09/20 12/09/20 12/09/20 Range/Units 06:54 06:54 08:53 WBC 9.87 (4.0-11.0) K/uL RBC 4.59 (4.50-5.90) M/uL Hgb 9.5 L (13.0-17.0) g/dL Hct 30.1 L (38.0-50.0) % MCV 65.6 L (80.0-98.0) fL MCH 20.7 L (27.0-32.0) pg MCHC 31.6 (31.0-37.0) g/dL RDW Std Deviation 50.2 (28.0-62.0) fl RDW Coeff of Malcolm 22 H (11.0-15.0) % Plt Count 562 H (150-400) K/uL MPV 8.20 (7.40-12.00) fL Neut % (Auto) 82.9 H (48.0-80.0) % Lymph % (Auto) 9.9 L (16.0-40.0) % [place] % (Auto) 7.2 (0.0-15.0) % Eos % (Auto) 0.0 (0.0-7.0) % Baso % (Auto) 0.0 (0.0-1.5) % Neut # (Auto) 8.2 H (1.4-5.7) K/uL Lymph # (Auto) 1.0 (0.6-2.4) K/uL [place] # (Auto) 0.7 (0.0-0.8) K/uL Eos # (Auto) 0.0 (0.0-0.7) K/uL Baso # (Auto) 0.0 (0.0-0.1) K/uL Add Manual Diff Neutrophils % (Manual) (48.0-80.0) % Band Neutrophils % % Lymphocytes % (Manual) (16.0-40.0) % Monocytes % (Manual) (0.0-15.0) % Nucleated RBC % 0.0 /100WBC Absolute Seg Neuts (1.4-5.7) Band Neutrophils # Lymphocytes # (Manual) (0.6-2.4) Monocytes # (Manual) (0.0-0.8) Nucleated RBCs # 0 K/uL Sodium 135 L (136-148) mmol/L Potassium 4.7 (3.5-5.1) mmol/L Chloride 100 (98-107) mmol/L Carbon Dioxide 26.4 (21.0-32.0) mmol/L BUN 3 L (7.0-18.0) mg/dL Creatinine 0.9 (0.8-1.3) mg/dL Est Cr Clr Drug Dosing 111.63 mL/min Estimated GFR (MDRD) > 60.0 ml/min Glucose 163 H (74-106) mg/dL Calcium 8.4 L (8.5-10.1) mg/dL Phosphorus 4.2 (2.6-4.7) mg/dL Magnesium 2.0 (1.8-2.4) mg/dL Total Bilirubin 0.3 (0.2-1.0) mg/dL AST 11 L (15-37) IU/L ALT 16 (14-63) IU/L Alkaline Phosphatase 82 (46-116) U/L Troponin I < 0.050 (0.000-0.056) ng/mL Total Protein 6.2 L (6.4-8.2) g/dL Albumin 1.7 L (3.4-5.0) g/dL Globulin 4.5 H (2.6-4.0) g/dL Albumin/Globulin Ratio 0.4 L (0.9-1.6) SARS-CoV-2 RNA (JADYN) (NEGATIVE) Blood Type Antibody Screen Crossmatch Result Diagrams: 12/09/20 06:54 12/09/20 06:54 Brayden Results Last 24 hrs: Microbiology 12/08/20 22:50 C. difficile Antigen & Toxins A,B - Final Stool / Feces Sepsis Event Note - Evaluation Sepsis Screening Result: No Definite Risk - Focused Exam Vital Signs: Vital Signs Temp Temp Pulse Resp BP Pulse Ox 12/09/20 11:00 97.2 F 83 16 125/83 100 12/09/20 07:53 97.2 F 71 16 118/74 100 12/09/20 05:50 97 F 60 17 111/64 99 - Problem List & Annotations (1) Bleeding hemorrhoids SNOMED Code(s): 52814799 Code(s): K64.9 - UNSPECIFIED HEMORRHOIDS Status: Acute Current Visit: Yes (2) Pericarditis SNOMED Code(s): 2896352 Code(s): I31.9 - DISEASE OF PERICARDIUM, UNSPECIFIED Status: Acute Current Visit: Yes (3) Anemia SNOMED Code(s): 976287392 Code(s): D64.9 - ANEMIA, UNSPECIFIED Status: Acute Current Visit: Yes (4) Ulcerative colitis SNOMED Code(s): 26371267 Code(s): K51.90 - ULCERATIVE COLITIS, UNSPECIFIED, WITHOUT COMPLICATIONS Status: Acute Current Visit: Yes (5) Diarrhea SNOMED Code(s): 10467111 Code(s): R19.7 - DIARRHEA, UNSPECIFIED Status: Acute Current Visit: Yes - Problem List Review Problem List Initiated/Reviewed/Updated: Yes - My Orders Last 24 Hours: My Active Orders 12/09/20 09:08 Echo Comp wo Cont [US] Urgent 12/10/20 05:11 CBC WITH AUTO DIFF [HEME] AM CMP [COMPREHENSIVE METABOLIC PN,CMP] [CHEM] AM 12/11/20 05:11 CBC WITH AUTO DIFF [HEME] AM CMP [COMPREHENSIVE METABOLIC PN,CMP] [CHEM] AM - Plan Plan:: 1. Ulcerative colitis flare up -Continue the patient on Solu-Medrol 40 mg IV every 8 hours -Continue the patient on intravenous fluids 1000 mL and 125 mL/h -For pain continue the patient on morphine 2 mg IV every 3 hours as needed -We have held his iron supplement as well as his mesalamine until his flare up is controlled 2. Anemia secondary to blood loss -The patient was given 2 units of packed red blood cells yesterday which improved his hemoglobin levels -We will continue to monitor his hemoglobin levels through daily CBC's, and treat him accordingly 3. Diarrhea -The patient attributes his diarrhea to a clear liquid diet, as a result we have progressed his diet to soft, which he is tolerating well at the moment -If his diarrhea improves and he continues to have no pain in his abdomen, we will progress to provide the patient Imodium. -If his diarrhea does not improve and he continues to have pain in his abdomen, we will progress to antibiotic therapy with ciprofloxacin and Flagyl 4. Bleeding hemorrhoids -For this condition the patient is using wipes which have been decreasing the size and irritability associated the hemorrhoid, he has been advised to continue using these wipes as needed 5. Acute pericarditis -The patient's EKG from this morning showed acute pericarditis in multiple leads, subsequently he had a troponin level done which was negative, this pericarditis may be secondary to the inflammatory process of UC, he denies chest pain and palpitations however we have ordered an echocardiogram to evaluate for any abnormalities related to his pericardium and/or heart. <Duke Jackson - Last Filed: 12/10/20 15:18> - Patient Data Vitals - Most Recent: Last Vital Signs Temp 36.1 C 12/10/20 12:00 Pulse 64 12/10/20 12:00 Resp 12 12/10/20 12:00 BP 121/79 12/10/20 12:00 Pulse Ox 64 L 12/10/20 12:00 Orthostatic Blood Pressure [ 109/68 Standing] Orthostatic Blood Pressure [ 118/77 Sitting] Orthostatic Blood Pressure [ 122/75 Supine] I&O - Last 24 Hours: Intake & Output 12/10/20 12/10/20 12/10/20 06:59 14:59 22:59 Intake Total 1475 Balance 1475 Lab Results Last 24 Hours: Laboratory Results - last 24 hr 12/08/20 12/10/20 12/10/20 Range/Units 14:37 05:30 05:30 WBC 13.92 H (4.0-11.0) K/uL RBC 4.40 L (4.50-5.90) M/uL Hgb 9.2 L (13.0-17.0) g/dL Hct 28.9 L (38.0-50.0) % MCV 65.7 L (80.0-98.0) fL MCH 20.9 L (27.0-32.0) pg MCHC 31.8 (31.0-37.0) g/dL RDW Std Deviation 49.4 (28.0-62.0) fl RDW Coeff of Malcolm 21 H (11.0-15.0) % Plt Count 637 H (150-400) K/uL MPV 8.40 (7.40-12.00) fL Neut % (Auto) 87.6 H (48.0-80.0) % Lymph % (Auto) 7.0 L (16.0-40.0) % [place] % (Auto) 5.3 (0.0-15.0) % Eos % (Auto) 0.0 (0.0-7.0) % Baso % (Auto) 0.1 (0.0-1.5) % Neut # (Auto) 12.2 H (1.4-5.7) K/uL Lymph # (Auto) 1.0 (0.6-2.4) K/uL [place] # (Auto) 0.7 (0.0-0.8) K/uL Eos # (Auto) 0.0 (0.0-0.7) K/uL Baso # (Auto) 0.0 (0.0-0.1) K/uL Nucleated RBC % 0.0 /100WBC Nucleated RBCs # 0 K/uL Sodium 137 (136-148) mmol/L Potassium 4.5 (3.5-5.1) mmol/L Chloride 103 (98-107) mmol/L Carbon Dioxide 26.5 (21.0-32.0) mmol/L BUN 7 (7.0-18.0) mg/dL Creatinine 0.8 (0.8-1.3) mg/dL Est Cr Clr Drug Dosing 125.58 mL/min Estimated GFR (MDRD) > 60.0 ml/min Glucose 158 H (74-106) mg/dL Calcium 8.3 L (8.5-10.1) mg/dL Total Bilirubin 0.2 (0.2-1.0) mg/dL AST 11 L (15-37) IU/L ALT 14 (14-63) IU/L Alkaline Phosphatase 76 (46-116) U/L Total Protein 5.8 L (6.4-8.2) g/dL Albumin 1.6 L (3.4-5.0) g/dL Globulin 4.2 H (2.6-4.0) g/dL Albumin/Globulin Ratio 0.4 L (0.9-1.6) Chlamydia/GC Source URINE C.trachomatis RNA (TMA) Negative (Negative) N.gonorrhoeae RNA (TMA) Negative (Negative) Brayden Results Last 24 Hours: Microbiology 12/08/20 22:50 Shiga Toxin I & II - Final Stool / Feces Med Orders - Current: Current Medications [place] Butter/Phenylephrine ([place] Butter/Phenylephrine Rectal Supp) 1 each RECTAL DAILY PRN PRN Reason: hemorrhoids Hydrocortisone (Hydrocortisone 2.5% Crm 30 Gm Tube) 1 gm TOP DAILY PRN PRN Reason: HEMORRHOIDS Sodium Chloride (Normal Saline) 1,000 mls @ 125 mls/hr IV ASDIRECTED [facility] Last Admin: 12/09/20 21:15 Dose: 125 mls/hr Documented by: Methylprednisolone Sodium Succinate (Methylprednisolone Sodium Succinate 40 Mg/1 Ml Sdv) 40 mg IVPUSH Q8H [facility] Last Admin: 12/10/20 06:26 Dose: 40 mg Documented by: Morphine Sulfate (Morphine 2 Mg/Ml Syringe) 2 mg IVPUSH Q3H PRN PRN Reason: Pain (severe 7-10) Ondansetron HCl (Ondansetron 4 Mg/2 Ml Sdv) 4 mg IVPUSH Q4H PRN PRN Reason: Nausea Discontinued Medications Sodium Chloride (Normal Saline) 1,000 mls @ 999 mls/hr IV STAT ONE Stop: 12/08/20 14:39 Last Admin: 12/08/20 13:48 Dose: 999 mls/hr Documented by: Sodium Chloride (Normal Saline) 1,000 mls @ 125 mls/hr IV STAT ONE Stop: 12/08/20 23:00 Last Admin: 12/08/20 15:17 Dose: 125 mls/hr Documented by: Ibuprofen (Ibuprofen 600 Mg Tab) 600 mg PO ONETIME ONE Stop: 12/09/20 08:41 Last Admin: 12/09/20 08:49 Dose: Not Given Documented by: Iopamidol (Iopamidol 755 Mg/Ml 500 Ml Multipack Bottle) 100 ml IVPUSH ONETIME STA Stop: 12/08/20 15:42 Last Admin: 12/08/20 15:42 Dose: 100 ml Documented by: Methylprednisolone Sodium Succinate (Methylprednisolone Sodium Succinate 40 Mg/1 Ml Sdv) 40 mg IVPUSH DAILY [facility] Last Admin: 12/08/20 15:59 Dose: 40 mg Documented by: Morphine Sulfate (Morphine 4 Mg/Ml Syringe) 4 mg IVPUSH ONETIME ONE Stop: 12/08/20 13:40 Last Admin: 12/08/20 13:48 Dose: 4 mg Documented by: Morphine Sulfate (Morphine 10 Mg/Ml Syringe) 2 mg IVPUSH Q3H PRN PRN Reason: Pain (severe 7-10) Stop: 12/09/20 15:15 Ondansetron HCl (Ondansetron 4 Mg/2 Ml Sdv) 4 mg IVPUSH ONETIME ONE Stop: 12/08/20 13:40 Last Admin: 12/08/20 13:48 Dose: 4 mg Documented by: - Patient Data Lab Results Last 24 hrs: Laboratory Results - last 24 hr 12/08/20 12/10/20 12/10/20 Range/Units 14:37 05:30 05:30 WBC 13.92 H (4.0-11.0) K/uL RBC 4.40 L (4.50-5.90) M/uL Hgb 9.2 L (13.0-17.0) g/dL Hct 28.9 L (38.0-50.0) % MCV 65.7 L (80.0-98.0) fL MCH 20.9 L (27.0-32.0) pg MCHC 31.8 (31.0-37.0) g/dL RDW Std Deviation 49.4 (28.0-62.0) fl RDW Coeff of Malcolm 21 H (11.0-15.0) % Plt Count 637 H (150-400) K/uL MPV 8.40 (7.40-12.00) fL Neut % (Auto) 87.6 H (48.0-80.0) % Lymph % (Auto) 7.0 L (16.0-40.0) % [place] % (Auto) 5.3 (0.0-15.0) % Eos % (Auto) 0.0 (0.0-7.0) % Baso % (Auto) 0.1 (0.0-1.5) % Neut # (Auto) 12.2 H (1.4-5.7) K/uL Lymph # (Auto) 1.0 (0.6-2.4) K/uL [place] # (Auto) 0.7 (0.0-0.8) K/uL Eos # (Auto) 0.0 (0.0-0.7) K/uL Baso # (Auto) 0.0 (0.0-0.1) K/uL Nucleated RBC % 0.0 /100WBC Nucleated RBCs # 0 K/uL Sodium 137 (136-148) mmol/L Potassium 4.5 (3.5-5.1) mmol/L Chloride 103 (98-107) mmol/L Carbon Dioxide 26.5 (21.0-32.0) mmol/L BUN 7 (7.0-18.0) mg/dL Creatinine 0.8 (0.8-1.3) mg/dL Est Cr Clr Drug Dosing 125.58 mL/min Estimated GFR (MDRD) > 60.0 ml/min Glucose 158 H (74-106) mg/dL Calcium 8.3 L (8.5-10.1) mg/dL Total Bilirubin 0.2 (0.2-1.0) mg/dL AST 11 L (15-37) IU/L ALT 14 (14-63) IU/L Alkaline Phosphatase 76 (46-116) U/L Total Protein 5.8 L (6.4-8.2) g/dL Albumin 1.6 L (3.4-5.0) g/dL Globulin 4.2 H (2.6-4.0) g/dL Albumin/Globulin Ratio 0.4 L (0.9-1.6) Chlamydia/GC Source URINE C.trachomatis RNA (TMA) Negative (Negative) N.gonorrhoeae RNA (TMA) Negative (Negative) Result Diagrams: 12/10/20 05:30 12/10/20 05:30 [place] Results Last 24 hrs: Microbiology 12/08/20 22:50 Shiga Toxin I & II - Final Stool / Feces Sepsis Event Note - Focused Exam Vital Signs: Vital Signs Temp Pulse Resp BP Pulse Ox 12/10/20 12:00 36.1 C 64 12 121/79 64 L 12/10/20 08:00 36.9 C 70 12 115/72 98 12/10/20 04:15 36.1 C 63 15 113/59 L 99 - Plan Plan:: I have seen and evaluated the patient and agree with the residents note unless specified in my note
[2020-12-10] MEDS: methylPREDNISolone Sodium Succinate 40 MG/1 ML SDV IVPUSH SCH (06:26)
[2020-12-10 06:32] LABS: BLOOD UREA NITROGEN,BUN 7 mg/dL (7.0-18.0); CARBON DIOXIDE,CO2 26.5 mmol/L (21.0-32.0); CHLORIDE,CL 103 mmol/L (98-107); GLUCOSE RANDOM 158 mg/dL (74-106); POTASSIUM,K 4.5 mmol/L (3.5-5.1); SODIUM,NA 137 mmol/L (136-148)
[2020-12-10] MEDS ORDERED: Cocoa Butter/Phenylephrine Rectal Supp RECTAL PRN (07:01)
[2020-12-10] MEDS ORDERED: Hydrocortisone 2.5% Crm 30 GM Tube TOP PRN (07:02)
[2020-12-10 11:08] LABS: C.TRACHOMATIS BY TMA Negative (Negative); N.GONORRHOEAE BY TMA Negative (Negative)
--- NOTE | 2020-12-10 14:39 | PCM.DCSUM1 ---
<Christiano Eldridge - Last Filed: 12/10/20 14:39> Discharge Summary - Hospital Course Free Text/Narrative:: The patient is a 25-year-old male with a significant past medical history of ulcerative colitis who was admitted due to a flare up of this condition, and also suffered from anemia, diarrhea, bleeding hemorrhoids, and pericarditis while in hospital. For his ulcerative colitis flare up the patient was on intravenous Solu-Medrol 40 mg every 8 hours, he was also on intravenous fluids 1000 mL, 125 mL/h in order to replenish his fluids. For the pain associated with his UC the patient was given morphine 2 mg intravenously every 3 hours as needed. During his hospital stay the patient's iron and mesalamine medications were held in order to decrease complications. While in hospital the patient had anemia secondary to blood loss and was given 2 units of packed red blood cells. Currently his hemoglobin levels have reached appropriate levels and are 9.5. The patient also had diarrhea while in hospital and attributed that to a liquid diet that was given to him by Dr. Lewis, GI specialist in [place]. We transitioned him to a soft diet, which he tolerated well, which decreased his diarrhea and led to more solid stool. For his bleeding hemorrhoids the patient used wipes from home as well as Tucks solution, Preparation H was also used to decrease irritation. His hemorrhoids are currently nonirritated and nonbleeding. For the patient's pericarditis he had an echo done and was put on telemetry, his latest echo reviewed showed rare PACs but no other abnormalities. The patient is ready to be discharged, and will have follow-up appointments with his PCP Dr. Dc and his GI doctor Dr. Lewis. I have also sent the patient home on a Medrol Dosepak 4 mg per oral in order to fully decrease any symptoms that may be lingering from his UC flareup. - Discharge Data Discharge Date: 12/10/20 Discharge Disposition: Home, Self-Care 01 Condition: Stable - Referral to Home Health Primary Care Physician: PCP None - Discharge Diagnosis/Problem(s) (1) Bleeding hemorrhoids SNOMED Code(s): 91702369 ICD Code: K64.9 - UNSPECIFIED HEMORRHOIDS Status: Acute Current Visit: Yes (2) Pericarditis SNOMED Code(s): 1335278 ICD Code: I31.9 - DISEASE OF PERICARDIUM, UNSPECIFIED Status: Acute Current Visit: Yes (3) Anemia SNOMED Code(s): 606244456 ICD Code: D64.9 - ANEMIA, UNSPECIFIED Status: Acute Current Visit: Yes (4) Ulcerative colitis SNOMED Code(s): 95336671 ICD Code: K51.90 - ULCERATIVE COLITIS, UNSPECIFIED, WITHOUT COMPLICATIONS Status: Acute Current Visit: Yes (5) Diarrhea SNOMED Code(s): 12010255 ICD Code: R19.7 - DIARRHEA, UNSPECIFIED Status: Acute Current Visit: Yes - Patient Instructions Diet: Regular Diet as Tolerated Activity: As Tolerated Showering/Bathing: July Shower Notify Provider of: Fever, Increased Pain, Swelling and Redness, Nausea and/or Vomiting - Discharge Plan Prescriptions/Med Rec: methylPREDNISolone [Medrol Dose Pack] 4 mg PO ASDIRECTED #1 dospk Home Medications: Home Meds Ferrous Sulfate [Ferosul] 1 tab PO TID 07/26/20 [History] Mesalamine [Mesalamine Dr] 4 cap PO TID 12/09/20 [History] methylPREDNISolone [Medrol Dose Pack] 4 mg PO ASDIRECTED #1 dospk 12/10/20 [Rx] Patient Handouts: Methylprednisolone tablets Referrals: Michel cD MD [Physician] - 12/16/20 9:30 am Maira Lewis MD [Ordering Only Provider] - 02/12/21 3:20 pm (Message was left to obtain earlier appointment. Call provider to schedule a more recent appointment with nurse.) - Discharge Summary/Plan Comment DC Time >30 min.: Yes Total # of Minutes for Discharge Time: 35 minutes - Review of Systems General: Denies: Fever, Weakness, Fatigue, Chills, Appetite Pulmonary: Denies: Shortness of Breath, Pleuritic Chest Pain, Cough Cardiovascular: Denies: Chest Pain, Palpitations, Dyspnea on Exertion Gastrointestinal: Denies: Abdominal Pain, Constipation, Diarrhea, Nausea, Vomi ting Genitourinary: Denies: Dysuria - Patient Data Vitals - Most Recent: Last Vital Signs Temp 96.9 F 12/10/20 12:00 Pulse 64 12/10/20 12:00 Resp 12 12/10/20 12:00 BP 121/79 12/10/20 12:00 Pulse Ox 64 L 12/10/20 12:00 Orthostatic Blood Pressure [ 109/68 Standing] Orthostatic Blood Pressure [ 118/77 Sitting] Orthostatic Blood Pressure [ 122/75 Supine] Weight - Most Recent: 61.825 kg I&O - Last 24 hours: Intake & Output 12/09/20 12/10/20 12/10/20 22:59 06:59 14:59 Intake Total 800 1475 Output Total 0 Balance 800 1475 Lab Results - Last 24 hrs: Laboratory Results - last 24 hr 12/08/20 12/10/20 12/10/20 Range/Units 14:37 05:30 05:30 WBC 13.92 H (4.0-11.0) K/uL RBC 4.40 L (4.50-5.90) M/uL Hgb 9.2 L (13.0-17.0) g/dL Hct 28.9 L (38.0-50.0) % MCV 65.7 L (80.0-98.0) fL MCH 20.9 L (27.0-32.0) pg MCHC 31.8 (31.0-37.0) g/dL RDW Std Deviation 49.4 (28.0-62.0) fl RDW Coeff of Malcolm 21 H (11.0-15.0) % Plt Count 637 H (150-400) K/uL MPV 8.40 (7.40-12.00) fL Neut % (Auto) 87.6 H (48.0-80.0) % Lymph % (Auto) 7.0 L (16.0-40.0) % [place] % (Auto) 5.3 (0.0-15.0) % Eos % (Auto) 0.0 (0.0-7.0) % Baso % (Auto) 0.1 (0.0-1.5) % Neut # (Auto) 12.2 H (1.4-5.7) K/uL Lymph # (Auto) 1.0 (0.6-2.4) K/uL [place] # (Auto) 0.7 (0.0-0.8) K/uL Eos # (Auto) 0.0 (0.0-0.7) K/uL Baso # (Auto) 0.0 (0.0-0.1) K/uL Nucleated RBC % 0.0 /100WBC Nucleated RBCs # 0 K/uL Sodium 137 (136-148) mmol/L Potassium 4.5 (3.5-5.1) mmol/L Chloride 103 (98-107) mmol/L Carbon Dioxide 26.5 (21.0-32.0) mmol/L BUN 7 (7.0-18.0) mg/dL Creatinine 0.8 (0.8-1.3) mg/dL Est Cr Clr Drug Dosing 125.58 mL/min Estimated GFR (MDRD) > 60.0 ml/min Glucose 158 H (74-106) mg/dL Calcium 8.3 L (8.5-10.1) mg/dL Total Bilirubin 0.2 (0.2-1.0) mg/dL AST 11 L (15-37) IU/L ALT 14 (14-63) IU/L Alkaline Phosphatase 76 (46-116) U/L Total Protein 5.8 L (6.4-8.2) g/dL Albumin 1.6 L (3.4-5.0) g/dL Globulin 4.2 H (2.6-4.0) g/dL Albumin/Globulin Ratio 0.4 L (0.9-1.6) Chlamydia/GC Source URINE C.trachomatis RNA (TMA) Negative (Negative) N.gonorrhoeae RNA (TMA) Negative (Negative) ANNA Results - Last 24 hrs: Microbiology 12/08/20 22:50 Shiga Toxin I & II - Final Stool / Feces Med Orders - Current: Current Medications [place] Butter/Phenylephrine ([place] Butter/Phenylephrine Rectal Supp) 1 each RECTAL DAILY PRN PRN Reason: hemorrhoids Hydrocortisone (Hydrocortisone 2.5% Crm 30 Gm Tube) 1 gm TOP DAILY PRN PRN Reason: HEMORRHOIDS Sodium Chloride (Normal Saline) 1,000 mls @ 125 mls/hr IV ASDIRECTED [facility] Last Admin: 12/09/20 21:15 Dose: 125 mls/hr Documented by: Methylprednisolone Sodium Succinate (Methylprednisolone Sodium Succinate 40 Mg/1 Ml Sdv) 40 mg IVPUSH Q8H [facility] Last Admin: 12/10/20 06:26 Dose: 40 mg Documented by: Morphine Sulfate (Morphine 2 Mg/Ml Syringe) 2 mg IVPUSH Q3H PRN PRN Reason: Pain (severe 7-10) Ondansetron HCl (Ondansetron 4 Mg/2 Ml Sdv) 4 mg IVPUSH Q4H PRN PRN Reason: Nausea Discontinued Medications Sodium Chloride (Normal Saline) 1,000 mls @ 999 mls/hr IV STAT ONE Stop: 12/08/20 14:39 Last Admin: 12/08/20 13:48 Dose: 999 mls/hr Documented by: Sodium Chloride (Normal Saline) 1,000 mls @ 125 mls/hr IV STAT ONE Stop: 12/08/20 23:00 Last Admin: 12/08/20 15:17 Dose: 125 mls/hr Documented by: Ibuprofen (Ibuprofen 600 Mg Tab) 600 mg PO ONETIME ONE Stop: 12/09/20 08:41 Last Admin: 12/09/20 08:49 Dose: Not Given Documented by: Iopamidol (Iopamidol 755 Mg/Ml 500 Ml Multipack Bottle) 100 ml IVPUSH ONETIME STA Stop: 12/08/20 15:42 Last Admin: 12/08/20 15:42 Dose: 100 ml Documented by: Methylprednisolone Sodium Succinate (Methylprednisolone Sodium Succinate 40 Mg/1 Ml Sdv) 40 mg IVPUSH DAILY [facility] Last Admin: 12/08/20 15:59 Dose: 40 mg Documented by: Morphine Sulfate (Morphine 4 Mg/Ml Syringe) 4 mg IVPUSH ONETIME ONE Stop: 12/08/20 13:40 Last Admin: 12/08/20 13:48 Dose: 4 mg Documented by: Morphine Sulfate (Morphine 10 Mg/Ml Syringe) 2 mg IVPUSH Q3H PRN PRN Reason: Pain (severe 7-10) Stop: 12/09/20 15:15 Ondansetron HCl (Ondansetron 4 Mg/2 Ml Sdv) 4 mg IVPUSH ONETIME ONE Stop: 12/08/20 13:40 Last Admin: 12/08/20 13:48 Dose: 4 mg Documented by: - Exam General: Reports: Alert, Oriented, Cooperative, No Acute Distress Lungs: Reports: Clear to Auscultation, Normal Respiratory Effort Cardiovascular: Reports: Regular Rate, Regular Rhythm GI/Abdominal Exam: Normal Bowel Sounds, Soft, Non-Tender, No Organomegaly, No Distention <Manuel,Hooria - Last Filed: 12/10/20 15:12> Discharge Summary - Hospital Course Free Text/Narrative:: EKG showed diffuse ST elevations indicative of pericarditis, 2D ECHO was done, report pending, patient had no chest pain, sob, was on RA sating 100%. Troponin negative, no indication of ACS. I have seen and evaluated the patient and agree with the residents note unless specified in my note - Referral to Home Health Primary Care Physician: PCP None - Patient Data Vitals - Most Recent: Last Vital Signs Temp 36.1 C 12/10/20 12:00 Pulse 64 12/10/20 12:00 Resp 12 12/10/20 12:00 BP 121/79 12/10/20 12:00 Pulse Ox 64 L 12/10/20 12:00 Orthostatic Blood Pressure [ 109/68 Standing] Orthostatic Blood Pressure [ 118/77 Sitting] Orthostatic Blood Pressure [ 122/75 Supine] I&O - Last 24 hours: Intake & Output 12/10/20 12/10/20 12/10/20 06:59 14:59 22:59 Intake Total 1475 Balance 1475 Lab Results - Last 24 hrs: Laboratory Results - last 24 hr 12/08/20 12/10/20 12/10/20 Range/Units 14:37 05:30 05:30 WBC 13.92 H (4.0-11.0) K/uL RBC 4.40 L (4.50-5.90) M/uL Hgb 9.2 L (13.0-17.0) g/dL Hct 28.9 L (38.0-50.0) % MCV 65.7 L (80.0-98.0) fL MCH 20.9 L (27.0-32.0) pg MCHC 31.8 (31.0-37.0) g/dL RDW Std Deviation 49.4 (28.0-62.0) fl RDW Coeff of Malcolm 21 H (11.0-15.0) % Plt Count 637 H (150-400) K/uL MPV 8.40 (7.40-12.00) fL Neut % (Auto) 87.6 H (48.0-80.0) % Lymph % (Auto) 7.0 L (16.0-40.0) % [place] % (Auto) 5.3 (0.0-15.0) % Eos % (Auto) 0.0 (0.0-7.0) % Baso % (Auto) 0.1 (0.0-1.5) % Neut # (Auto) 12.2 H (1.4-5.7) K/uL Lymph # (Auto) 1.0 (0.6-2.4) K/uL [place] # (Auto) 0.7 (0.0-0.8) K/uL Eos # (Auto) 0.0 (0.0-0.7) K/uL Baso # (Auto) 0.0 (0.0-0.1) K/uL Nucleated RBC % 0.0 /100WBC Nucleated RBCs # 0 K/uL Sodium 137 (136-148) mmol/L Potassium 4.5 (3.5-5.1) mmol/L Chloride 103 (98-107) mmol/L Carbon Dioxide 26.5 (21.0-32.0) mmol/L BUN 7 (7.0-18.0) mg/dL Creatinine 0.8 (0.8-1.3) mg/dL Est Cr Clr Drug Dosing 125.58 mL/min Estimated GFR (MDRD) > 60.0 ml/min Glucose 158 H (74-106) mg/dL Calcium 8.3 L (8.5-10.1) mg/dL Total Bilirubin 0.2 (0.2-1.0) mg/dL AST 11 L (15-37) IU/L ALT 14 (14-63) IU/L Alkaline Phosphatase 76 (46-116) U/L Total Protein 5.8 L (6.4-8.2) g/dL Albumin 1.6 L (3.4-5.0) g/dL Globulin 4.2 H (2.6-4.0) g/dL Albumin/Globulin Ratio 0.4 L (0.9-1.6) Chlamydia/GC Source URINE C.trachomatis RNA (TMA) Negative (Negative) N.gonorrhoeae RNA (TMA) Negative (Negative) ANNA Results - Last 24 hrs: Microbiology 12/08/20 22:50 Shiga Toxin I & II - Final Stool / Feces Med Orders - Current: Current Medications [place] Butter/Phenylephrine ([place] Butter/Phenylephrine Rectal Supp) 1 each RECTAL DAILY PRN PRN Reason: hemorrhoids Hydrocortisone (Hydrocortisone 2.5% Crm 30 Gm Tube) 1 gm TOP DAILY PRN PRN Reason: HEMORRHOIDS Sodium Chloride (Normal Saline) 1,000 mls @ 125 mls/hr IV ASDIRECTED [facility] Last Admin: 12/09/20 21:15 Dose: 125 mls/hr Documented by: Methylprednisolone Sodium Succinate (Methylprednisolone Sodium Succinate 40 Mg/1 Ml Sdv) 40 mg IVPUSH Q8H [facility] Last Admin: 12/10/20 06:26 Dose: 40 mg Documented by: Morphine Sulfate (Morphine 2 Mg/Ml Syringe) 2 mg IVPUSH Q3H PRN PRN Reason: Pain (severe 7-10) Ondansetron HCl (Ondansetron 4 Mg/2 Ml Sdv) 4 mg IVPUSH Q4H PRN PRN Reason: Nausea Discontinued Medications Sodium Chloride (Normal Saline) 1,000 mls @ 999 mls/hr IV STAT ONE Stop: 12/08/20 14:39 Last Admin: 12/08/20 13:48 Dose: 999 mls/hr Documented by: Sodium Chloride (Normal Saline) 1,000 mls @ 125 mls/hr IV STAT ONE Stop: 12/08/20 23:00 Last Admin: 12/08/20 15:17 Dose: 125 mls/hr Documented by: Ibuprofen (Ibuprofen 600 Mg Tab) 600 mg PO ONETIME ONE Stop: 12/09/20 08:41 Last Admin: 12/09/20 08:49 Dose: Not Given Documented by: Iopamidol (Iopamidol 755 Mg/Ml 500 Ml Multipack Bottle) 100 ml IVPUSH ONETIME STA Stop: 12/08/20 15:42 Last Admin: 12/08/20 15:42 Dose: 100 ml Documented by: Methylprednisolone Sodium Succinate (Methylprednisolone Sodium Succinate 40 Mg/1 Ml Sdv) 40 mg IVPUSH DAILY [facility] Last Admin: 12/08/20 15:59 Dose: 40 mg Documented by: Morphine Sulfate (Morphine 4 Mg/Ml Syringe) 4 mg IVPUSH ONETIME ONE Stop: 12/08/20 13:40 Last Admin: 12/08/20 13:48 Dose: 4 mg Documented by: Morphine Sulfate (Morphine 10 Mg/Ml Syringe) 2 mg IVPUSH Q3H PRN PRN Reason: Pain (severe 7-10) Stop: 12/09/20 15:15 Ondansetron HCl (Ondansetron 4 Mg/2 Ml Sdv) 4 mg IVPUSH ONETIME ONE Stop: 12/08/20 13:40 Last Admin: 12/08/20 13:48 Dose: 4 mg Documented by:
--- NOTE | 2020-12-12 13:05 | ECHO ---
EXAM DATE: 12/08/20 PATIENT'S AGE: 25 The ECHO report has been scanned into [employer] and can be seen in this patient's EMR (Electronic Medical Record) under the REPORTS section. The report has also been scanned into PACS. HORACIO
== END 2020-12-10 12:50 | disposition home or self-care (01) | DRG 245 ==
LOC: MW.ED 12:48 → OBSVTOIN 15:02 → MW.MS 15:02 → MERGE 15:02
PROVIDERS: ADMIT Internal Medicine; ATTEND Internal Medicine
PROC: 30233N1 Transfusion of Nonautologous Red Blood Cells into Peripheral Vein, Percutaneous Approach (ICD-10-PCS; principal; 2020-12-08)
DX: K51.90 Ulcerative colitis, unspecified, without complications (principal); I31.9 Disease of pericardium, unspecified; K64.9 Unspecified hemorrhoids; D62 Acute posthemorrhagic anemia; R19.7 Diarrhea, unspecified; Z79.899 Other long term (current) drug therapy; Z20.822 Contact with and (suspected) exposure to COVID-19
CPT/HCPCS: 36415; 36430; 74177; 74177-26; 76870; 76870-26; 80053; 81003; 82728; 83550; 83605; 83735; 84100; 84484; 85025; 86850; 86900; 86901; 86920; 86921; 86922; 87045; 87046; 87324; 87449; 87491; 87591; 87899; 93005; 93306; 93976; 93976-26; 96374; 96375; 99285-25; J2270; J2405; J2920; J7030; P9016; Q9967; U0002